=== PATIENT | male | born 1990 | race Caucasian/White ===

== ENCOUNTER → 2016-11-24 | Outpatient (CLI) | payer SELFPAY ==
--- NOTE | 2016-11-25 00:10 | DI ---
XR TIB/FIB 2VW,11/24/2016 4:36 PM: Clinical History: Right tibial fracture Previous Exam: August 09, 2011 Findings: AP and lateral views of the right tibia and fibula are obtained, and demonstrate a stable tibial intr amedullary peter. There has been healing of a right mid tibial fracture with callus formation. 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 Impression: No significant change since 2011.
--- NOTE | 2016-11-25 00:24 | DI ---
XR KNEE 3 VW,11/24/2016 4:37 PM: Clinical History: Right lower extremity pain Previous Exam: August 09, 2011 Findings: 3 views of the right knee are obtained, and demonstrate anatomic alignment without fractures. There i s an intramedullary peter noted within the tibia. There is a stable osteochondroma involving the proximal fibula. Impression: Stable postsurgical changes otherwise unremarkable.
== END ==
LOC: ORTHO 15:03
PROVIDERS: ATTEND Orthopaedic Surgery
DX: M79.661 Pain in right lower leg (principal); S82.201D Unspecified fracture of shaft of right tibia, subsequent encounter for closed fracture with routine healing; D16.21 Benign neoplasm of long bones of right lower limb; Z98.890 Other specified postprocedural states
CPT/HCPCS: 73562; 73590